=== PATIENT | male | born 1960 | race Caucasian/White ===

== ENCOUNTER 2018-10-01 16:35 | Outpatient (REF) | payer MEDICARE, SELFPAY ==
[2018-10-01 22:26] LABS: ALT 34 U/L (12-78); AST 24 U/L (15-37); Albumin 3.8 g/dL (3.4-5.0); Alkaline Phosphatase 71 U/L (46-116); Anion Gap 6.8 mmol/L (3-11); BUN 21 mg/dL (7-18); Bilirubin, Total 0.5 mg/dL (0.2-1.0); CO2 28.2 mmol/L (21.0-32.0); CREATININE 1.28 mg/dL (0.70-1.30); Calcium 9.4 mg/dL (8.5-10.1); Chloride 105 mmol/L (98-107); Estimated GFR 57.93 (mL/min/1.73m2); Glucose 87 mg/dL (70-100); Potassium 4.2 mmol/L (3.5-5.1); Sodium 140 mmol/L (136-145); Total Protein 7.2 g/dL (6.4-8.2)
== END 2018-10-01 16:55 ==
LOC: LBN 16:35
PROVIDERS: PCP Internal Medicine; Visit Provider Internal Medicine Rheumatology
DX: L40.50 Arthropathic psoriasis, unspecified (principal); Z79.899 Other long term (current) drug therapy
CPT/HCPCS: 80053

== ENCOUNTER 2020-04-29 13:31 | Outpatient (REF) | payer MEDICARE, SELFPAY ==
[2020-04-29 20:33] LABS: Abs Immature Grans 0.02 10^3/uL (0.0-0.06); Absolute Basophil Count 0.03 10^3/uL (0.0-0.2); Absolute Eosinophil Count 0.23 10^3/uL (0.0-0.7); Absolute Lymphocyte Count 1.66 10^3/uL (1.2-3.4); Absolute Monocyte Count 0.46 10^3/uL (0.1-0.8); Absolute Neutrophil Count 2.73 10^3/uL (1.2-6.7); Basophils % 0.6; Eosinophils % 4.5; HCT 44.8 % (40.0-50.0); HGB 14.6 g/dL (13.5-17.5); Immature Grans % 0.4; Lymphocytes % 32.4; MCH 31.8 pg (27.0-33.0); MCHC 32.6 % (32.0-36.0); MCV 97.6 fL (80-95); MPV 9.4 fL (8.0-11.0); Neutrophils % 53.1; Nucleated RBC 0 %; Platelet Count 287 10^3/uL (130-400); RBC 4.59 10^6/uL (4.36-5.78); RDW 12.7 % (11.8-14.1); RDW-SD 45.7 fL; WBC 5.13 10^3/uL (4.4-10.8)
[2020-04-29 21:04] LABS: ALT 52 U/L (16-63); AST 28 U/L (15-37); Alkaline Phosphatase 71 U/L (46-116); Anion Gap 6.8 mmol/L (3-11); BUN 20 mg/dL (7-18); Bilirubin, Total 1.1 mg/dL (0.2-1.0); CO2 29.2 mmol/L (21.0-32.0); CREATININE 1.13 mg/dL (0.70-1.30); Calcium 9.5 mg/dL (8.5-10.1); Chloride 104 mmol/L (98-107); Glucose 81 mg/dL (74-106); Potassium 4.4 mmol/L (3.5-5.1); Sodium 140 mmol/L (136-145); Total Protein 7.4 g/dL (6.4-8.2)
== END 2020-04-29 13:51 ==
LOC: NCHCN 13:31
PROVIDERS: PCP Internal Medicine; Referring Provider Nurse Practitioner Family; Visit Provider Nurse Practitioner Family
DX: L40.50 Arthropathic psoriasis, unspecified (principal); Z79.899 Other long term (current) drug therapy
CPT/HCPCS: 80053; 85025

== ENCOUNTER 2020-08-24 16:12 | Outpatient (REF) | payer MEDICARE, SELFPAY ==
[2020-08-24 22:50] LABS: ALT 42 U/L (16-63); AST 26 U/L (15-37); Albumin 4.1 g/dL (3.4-5.0); Alkaline Phosphatase 72 U/L (46-116); Anion Gap 6.5 mmol/L (3-11); BUN 24 mg/dL (7-18); Bilirubin, Total 0.6 mg/dL (0.2-1.0); CO2 28.5 mmol/L (21.0-32.0); CREATININE 1.34 mg/dL (0.70-1.30); Calcium 9.6 mg/dL (8.5-10.1); Chloride 104 mmol/L (98-107); Estimated GFR 54.56 (mL/min/1.73m2); Glucose 168 mg/dL (74-106); Lipase 57 U/L (73-393); Sodium 139 mmol/L (136-145); Total Protein 7.4 g/dL (6.4-8.2)
[2020-08-24 23:10] LABS: HCT 40.3 % (40.0-50.0); HGB 13.8 g/dL (13.5-17.5); MCH 32.8 pg (27.0-33.0); MCHC 34.2 % (32.0-36.0); MCV 95.7 fL (80-95); MPV 9.2 fL (8.0-11.0); Platelet Count 278 10^3/uL (130-400); RBC 4.21 10^6/uL (4.36-5.78); RDW 13.6 % (11.8-14.1); WBC 6.23 10^3/uL (4.4-10.8)
[2020-08-24 23:27] LABS: Hemoglobin A1C 5.7 % (<5.7)
== END 2020-08-24 16:32 ==
LOC: NCHCN 16:12
PROVIDERS: PCP Internal Medicine; Visit Provider Nurse Practitioner Family
DX: R73.03 Prediabetes (principal); R78.5 Finding of other psychotropic drug in blood; E66.9 Obesity, unspecified; E88.81 Metabolic syndrome and other insulin resistance
CPT/HCPCS: 80053; 83690; 85027; 83036

== ENCOUNTER 2020-11-02 19:19 | Outpatient (REF) | payer MEDICARE, SELFPAY ==
[2020-11-02 22:09] LABS: HCT 40.6 % (40.0-50.0); HGB 13.9 g/dL (13.5-17.5); MCH 32.9 pg (27.0-33.0); MCHC 34.2 % (32.0-36.0); MPV 8.8 fL (8.0-11.0); Platelet Count 279 10^3/uL (130-400); RBC 4.23 10^6/uL (4.36-5.78); RDW 13.3 % (11.8-14.1); RDW-SD 46.8 fL; WBC 6.32 10^3/uL (4.4-10.8)
[2020-11-02 22:18] LABS: Anion Gap 7.7 mmol/L (3-11); BUN 18 mg/dL (7-18); CO2 29.3 mmol/L (21.0-32.0); CREATININE 1.2 mg/dL (0.70-1.30); Calcium 10.2 mg/dL (8.5-10.1); Chloride 105 mmol/L (98-107); Glucose 96 mg/dL (74-106); Potassium 4.4 mmol/L (3.5-5.1); Sodium 142 mmol/L (136-145)
== END 2020-11-02 19:20 | disposition home or self-care (01) ==
LOC: NCHCN 19:19
PROVIDERS: PCP Internal Medicine; Visit Provider Nurse Practitioner Family
DX: E66.9 Obesity, unspecified (principal)
CPT/HCPCS: 80048; 85027

== ENCOUNTER 2020-12-22 14:12 | Outpatient (REF) | payer MEDICARE, SELFPAY ==
[2020-12-22 15:26] LABS: Abs Immature Grans 0.02 10^3/uL (0.0-0.06); Absolute Basophil Count 0.03 10^3/uL (0.0-0.2); Absolute Eosinophil Count 0.35 10^3/uL (0.0-0.7); Absolute Lymphocyte Count 1.36 10^3/uL (1.2-3.4); Absolute Monocyte Count 0.57 10^3/uL (0.1-0.8); Absolute Neutrophil Count 2.13 10^3/uL (1.2-6.7); Basophils % 0.7; Eosinophils % 7.8; HCT 38.2 % (40.0-50.0); HGB 12.6 g/dL (13.5-17.5); Immature Grans % 0.4; Lymphocytes % 30.5; MCH 32.9 pg (27.0-33.0); MCV 99.7 fL (80-95); MPV 9.2 fL (8.0-11.0); Monocytes % 12.8; Neutrophils % 47.8; Nucleated RBC 0 %; Platelet Count 297 10^3/uL (130-400); RBC 3.83 10^6/uL (4.36-5.78); RDW 13.3 % (11.8-14.1); RDW-SD 48.6 fL; WBC 4.46 10^3/uL (4.4-10.8)
[2020-12-22 16:11] LABS: ALT 44 U/L (16-63); AST 25 U/L (15-37); Alkaline Phosphatase 68 U/L (46-116); BUN 18 mg/dL (7-18); Bilirubin, Total 0.7 mg/dL (0.2-1.0); CREATININE 1.1 mg/dL (0.70-1.30); Calcium 9.2 mg/dL (8.5-10.1); Calculated LDL 135 mg/dL (<100); Chloride 107 mmol/L (98-107); Cholesterol 200 mg/dL (<200); Glucose 99 mg/dL (74-106); HDL Cholesterol 33 mg/dL (40-60); Potassium 4.7 mmol/L (3.5-5.1); Sodium 142 mmol/L (136-145); Total Protein 7.3 g/dL (6.4-8.2); Triglyceride 162 mg/dL (<150)
== END 2020-12-22 14:13 | disposition home or self-care (01) ==
LOC: LBN 14:12
PROVIDERS: PCP Internal Medicine; Visit Provider Nurse Practitioner Family
DX: L40.50 Arthropathic psoriasis, unspecified (principal); Z79.899 Other long term (current) drug therapy; E78.5 Hyperlipidemia, unspecified
CPT/HCPCS: 80053; 80061; 85025

== ENCOUNTER 2021-01-18 11:32 | Outpatient (REF) | payer MEDICARE, SELFPAY ==
[2021-01-19 14:02] LABS: Helicobacter pylori Ag, Feces Negative (Negative)
== END 2021-01-18 11:33 | disposition home or self-care (01) ==
LOC: NCHCN 11:32
PROVIDERS: Nurse Practitioner Family; PCP Internal Medicine; Visit Provider Nurse Practitioner Community Health
DX: K21.9 Gastro-esophageal reflux disease without esophagitis (principal)
CPT/HCPCS: 87338

== ENCOUNTER 2021-05-01 17:55 | Outpatient (REF) | payer MEDICARE, SELFPAY ==
[2021-05-01 21:18] LABS: Abs Immature Grans 0.04 10^3/uL (0.0-0.06); Absolute Basophil Count 0.04 10^3/uL (0.0-0.2); Absolute Eosinophil Count 0.36 10^3/uL (0.0-0.7); Absolute Lymphocyte Count 1.64 10^3/uL (1.2-3.4); Absolute Monocyte Count 0.62 10^3/uL (0.1-0.8); Absolute Neutrophil Count 4.21 10^3/uL (1.2-6.7); Basophils % 0.6; Eosinophils % 5.2; HCT 40.1 % (40.0-50.0); HGB 13.4 g/dL (13.5-17.5); Immature Grans % 0.6; Lymphocytes % 23.7; MCH 31.3 pg (27.0-33.0); MCHC 33.4 % (32.0-36.0); MCV 93.7 fL (80-95); MPV 9.2 fL (8.0-11.0); Neutrophils % 60.9; Nucleated RBC 0 %; Platelet Count 307 10^3/uL (130-400); RBC 4.28 10^6/uL (4.36-5.78); RDW 14.4 % (11.8-14.1); RDW-SD 49.2 fL; WBC 6.91 10^3/uL (4.4-10.8)
[2021-05-01 21:33] LABS: ALT 45 U/L (16-63); AST 32 U/L (15-37); Alkaline Phosphatase 69 U/L (46-116); BUN 18 mg/dL (7-18); Bilirubin, Total 0.8 mg/dL (0.2-1.0); CREATININE 1.3 mg/dL (0.70-1.30); Calcium 10.2 mg/dL (8.5-10.1); Chloride 105 mmol/L (98-107); Estimated GFR 56.31 (mL/min/1.73m2); Glucose 148 mg/dL (74-106); Potassium 4.4 mmol/L (3.5-5.1); Sodium 142 mmol/L (136-145); Total Protein 7.2 g/dL (6.4-8.2)
== END 2021-05-01 17:56 | disposition home or self-care (01) ==
LOC: LBN 17:55
PROVIDERS: PCP Internal Medicine; Visit Provider Nurse Practitioner Family
DX: L40.50 Arthropathic psoriasis, unspecified (principal); Z79.899 Other long term (current) drug therapy
CPT/HCPCS: 80053; 85025

== ENCOUNTER 2021-06-09 15:47 | Outpatient (REF) | payer MEDICARE, SELFPAY ==
[2021-06-09 21:13] LABS: Magnesium 2.1 mg/dL (1.8-2.4)
[2021-06-09 21:17] LABS: Anion Gap 8.7 mmol/L (3-11); BUN 19 mg/dL (7-18); CO2 25.3 mmol/L (21.0-32.0); Calcium 9.3 mg/dL (8.5-10.1); Chloride 108 mmol/L (98-107); Glucose 100 mg/dL (74-106); Potassium 4.6 mmol/L (3.5-5.1); Sodium 142 mmol/L (136-145)
== END 2021-06-09 15:48 | disposition home or self-care (01) ==
LOC: NCHCN 15:47
PROVIDERS: PCP Internal Medicine; Visit Provider Nurse Practitioner Family
DX: R25.2 Cramp and spasm (principal)
CPT/HCPCS: 80048; 83735

== ENCOUNTER 2021-09-11 16:40 | Outpatient (REF) | payer MEDICARE, SELFPAY ==
[2021-09-11 22:15] LABS: Abs Immature Grans 0.03 10^3/uL (0.0-0.06); Absolute Basophil Count 0.04 10^3/uL (0.0-0.2); Absolute Eosinophil Count 0.36 10^3/uL (0.0-0.7); Absolute Lymphocyte Count 1.56 10^3/uL (1.2-3.4); Absolute Monocyte Count 0.63 10^3/uL (0.1-0.8); Basophils % 0.6; Eosinophils % 5.3; HCT 41.1 % (40.0-50.0); HGB 13.4 g/dL (13.5-17.5); Immature Grans % 0.4; Lymphocytes % 22.9; MCH 31.9 pg (27.0-33.0); MCHC 32.6 % (32.0-36.0); MCV 97.9 fL (80-95); Monocytes % 9.2; Neutrophils % 61.6; Nucleated RBC 0 %; Platelet Count 328 10^3/uL (130-400); RDW 13.3 % (11.8-14.1); RDW-SD 47.4 fL; WBC 6.82 10^3/uL (4.4-10.8)
[2021-09-11 22:24] LABS: ALT 25 U/L (16-63); AST 20 U/L (15-37); Albumin 3.9 g/dL (3.4-5.0); Alkaline Phosphatase 80 U/L (46-116); Anion Gap 7.1 mmol/L (3-11); BUN 29 mg/dL (7-18); Bilirubin, Total 0.6 mg/dL (0.2-1.0); CO2 28.9 mmol/L (21.0-32.0); CREATININE 1.3 mg/dL (0.70-1.30); Calcium 9.3 mg/dL (8.5-10.1); Chloride 106 mmol/L (98-107); Estimated GFR 56.31 (mL/min/1.73m2); Glucose 88 mg/dL (74-106); Potassium 4.5 mmol/L (3.5-5.1); Sodium 142 mmol/L (136-145); Total Protein 7.4 g/dL (6.4-8.2)
[2021-09-11 22:33] LABS: Hemoglobin A1C 5.8 % (<5.7)
[2021-09-11 22:49] LABS: Calculated LDL 139 mg/dL (<100); Cholesterol 204 mg/dL (<200); HDL Cholesterol 33 mg/dL (40-60); Triglyceride 161 mg/dL (<150)
== END 2021-09-11 16:41 | disposition home or self-care (01) ==
LOC: NCHCN 16:40
PROVIDERS: Nurse Practitioner Family; PCP Internal Medicine; Visit Provider Nurse Practitioner Family
DX: R73.03 Prediabetes (principal); R63.4 Abnormal weight loss; R03.0 Elevated blood-pressure reading, without diagnosis of hypertension; E78.5 Hyperlipidemia, unspecified; N39.0 Urinary tract infection, site not specified; L40.50 Arthropathic psoriasis, unspecified
CPT/HCPCS: 80053; 80061; 87077; 83036; 85025; 87086; 87186

== ENCOUNTER 2022-01-05 22:47 | Outpatient (REF) | payer MEDICARE, SELFPAY ==
[2022-01-05 21:59] LABS: Abs Immature Grans 0.01 10^3/uL (0.0-0.06); Absolute Basophil Count 0.05 10^3/uL (0.0-0.2); Absolute Eosinophil Count 0.56 10^3/uL (0.0-0.7); Absolute Lymphocyte Count 1.73 10^3/uL (1.2-3.4); Absolute Monocyte Count 0.54 10^3/uL (0.1-0.8); Absolute Neutrophil Count 2.97 10^3/uL (1.2-6.7); Basophils % 0.9; Eosinophils % 9.6; HCT 40.5 % (40.0-50.0); HGB 13.3 g/dL (13.5-17.5); Immature Grans % 0.2; Lymphocytes % 29.5; MCH 32.3 pg (27.0-33.0); MCHC 32.8 % (32.0-36.0); MCV 98.3 fL (80-95); MPV 9.2 fL (8.0-11.0); Monocytes % 9.2; Neutrophils % 50.6; Platelet Count 313 10^3/uL (130-400); RBC 4.12 10^6/uL (4.36-5.78); RDW 13.5 % (11.8-14.1); RDW-SD 49.1 fL; WBC 5.86 10^3/uL (4.4-10.8)
[2022-01-05 22:55] LABS: ALT 50 U/L (16-63); AST 37 U/L (15-37); Albumin 4.2 g/dL (3.4-5.0); Alkaline Phosphatase 81 U/L (46-116); Anion Gap 9.3 mmol/L (3-11); BUN 18 mg/dL (7-18); Bilirubin, Total 0.9 mg/dL (0.2-1.0); CO2 28.7 mmol/L (21.0-32.0); CREATININE 1.3 mg/dL (0.70-1.30); Calcium 9.7 mg/dL (8.5-10.1); Calculated LDL 144 mg/dL (<100); Chloride 105 mmol/L (98-107); Cholesterol 229 mg/dL (<200); Estimated GFR 56.12 (mL/min/1.73m2); Glucose 93 mg/dL (74-106); HDL Cholesterol 35 mg/dL (40-60); Potassium 4.4 mmol/L (3.5-5.1); Sodium 143 mmol/L (136-145); Total Protein 7.7 g/dL (6.4-8.2); Triglyceride 253 mg/dL (<150)
[2022-01-09 11:20] LABS: c-ANCA Negative (Negative); p-ANCA Negative (Negative)
== END 2022-01-05 22:48 | disposition home or self-care (01) ==
LOC: NCHCN 22:47
PROVIDERS: PCP Internal Medicine; Visit Provider Internal Medicine
DX: R03.0 Elevated blood-pressure reading, without diagnosis of hypertension (principal); E78.5 Hyperlipidemia, unspecified; L40.50 Arthropathic psoriasis, unspecified; Z79.899 Other long term (current) drug therapy; E66.9 Obesity, unspecified
CPT/HCPCS: 80053; 80061; 85025; 86255

== ENCOUNTER 2022-03-02 15:24 | Outpatient (REF) | payer MEDICARE, SELFPAY ==
[2022-03-02 14:40] LABS: Hemoglobin A1C 5.9 % (<5.7)
[2022-03-02 15:05] LABS: COMMENT (LAB VIEW ONLY) 177.44 mg/dL; Prot/Crea Ur Ratio 0.04
[2022-03-02 15:06] LABS: ALT 36 U/L (16-63); AST 16 U/L (15-37); Albumin 3.8 g/dL (3.4-5.0); Alkaline Phosphatase 66 U/L (46-116); BUN 21 mg/dL (7-18); Bilirubin, Total 0.7 mg/dL (0.2-1.0); CREATININE 1.2 mg/dL (0.70-1.30); Chloride 104 mmol/L (98-107); Glucose 96 mg/dL (74-106); Potassium 4.5 mmol/L (3.5-5.1); Sodium 139 mmol/L (136-145)
== END 2022-03-02 15:25 | disposition home or self-care (01) ==
LOC: NCHCN 15:24
PROVIDERS: PCP Internal Medicine; Visit Provider Nurse Practitioner Family
DX: R73.03 Prediabetes; R60.0 Localized edema
CPT/HCPCS: 80053; 82565; 83036; 84156

== ENCOUNTER 2022-07-02 08:29 | Outpatient (REF) | payer MEDICARE, SELFPAY ==
[2022-07-02 16:40] LABS: Abs Immature Grans 0.03 10^3/uL (0.0-0.06); Absolute Basophil Count 0.03 10^3/uL (0.0-0.2); Absolute Eosinophil Count 0.43 10^3/uL (0.0-0.7); Absolute Lymphocyte Count 1.56 10^3/uL (1.2-3.4); Absolute Monocyte Count 0.63 10^3/uL (0.1-0.8); Absolute Neutrophil Count 3.85 10^3/uL (1.2-6.7); Basophils % 0.5; Eosinophils % 6.6; HCT 41.3 % (40.0-50.0); Immature Grans % 0.5; Lymphocytes % 23.9; MCH 32.3 pg (27.0-33.0); MCHC 33.9 % (32.0-36.0); MCV 95 fL (80-95); MPV 9.3 fL (8.0-11.0); Monocytes % 9.6; Neutrophils % 58.9; Platelet Count 279 10^3/uL (130-400); RBC 4.34 10^6/uL (4.36-5.78); RDW 13.4 % (11.8-14.1); RDW-SD 47.1 fL; WBC 6.53 10^3/uL (4.4-10.8)
[2022-07-02 19:08] LABS: ALT 42 U/L (16-63); AST 24 U/L (15-37); Albumin 3.8 g/dL (3.4-5.0); Alkaline Phosphatase 73 U/L (46-116); Anion Gap 9.3 mmol/L (3-11); BUN 17 mg/dL (7-18); Bilirubin, Total 0.7 mg/dL (0.2-1.0); CO2 26.7 mmol/L (21.0-32.0); CREATININE 1.2 mg/dL (0.70-1.30); Calcium 9.3 mg/dL (8.5-10.1); Calculated LDL 85 mg/dL (<100); Chloride 106 mmol/L (98-107); Cholesterol 140 mg/dL (<200); Glucose 100 mg/dL (74-106); HDL Cholesterol 33 mg/dL (40-60); Potassium 4.4 mmol/L (3.5-5.1); Sodium 142 mmol/L (136-145); Total Protein 7.4 g/dL (6.4-8.2); Triglyceride 114 mg/dL (<150)
== END 2022-07-02 08:30 | disposition home or self-care (01) ==
LOC: NCHCN 08:29
PROVIDERS: PCP Internal Medicine; Visit Provider Nurse Practitioner Family
DX: E78.5 Hyperlipidemia, unspecified (principal); L40.50 Arthropathic psoriasis, unspecified; Z79.899 Other long term (current) drug therapy; M54.50 Low back pain, unspecified
CPT/HCPCS: 80053; 80061; 85025

== ENCOUNTER 2022-11-14 11:45 | Outpatient (REF) | payer MEDICARE, SELFPAY ==
[2022-11-14 15:41] LABS: Abs Immature Grans 0.03 10^3/uL (0.0-0.06); Absolute Basophil Count 0.03 10^3/uL (0.0-0.2); Absolute Eosinophil Count 0.39 10^3/uL (0.0-0.7); Absolute Lymphocyte Count 1.09 10^3/uL (1.2-3.4); Absolute Monocyte Count 0.99 10^3/uL (0.1-0.8); Absolute Neutrophil Count 5.98 10^3/uL (1.2-6.7); Basophils % 0.4; Eosinophils % 4.6; HCT 41.9 % (40.0-50.0); HGB 14.3 g/dL (13.5-17.5); Immature Grans % 0.4; Lymphocytes % 12.8; MCH 32.3 pg (27.0-33.0); MCHC 34.1 % (32.0-36.0); MCV 95 fL (80-95); MPV 9.2 fL (8.0-11.0); Monocytes % 11.6; Neutrophils % 70.2; Platelet Count 268 10^3/uL (130-400); RBC 4.43 10^6/uL (4.36-5.78); RDW 13.2 % (11.8-14.1); RDW-SD 45.3 fL; WBC 8.51 10^3/uL (4.4-10.8)
[2022-11-14 16:06] LABS: ALT 33 U/L (16-63); AST 20 U/L (15-37); Alkaline Phosphatase 91 U/L (46-116); Anion Gap 6.8 mmol/L (3-11); BUN 18 mg/dL (7-18); CO2 27.2 mmol/L (21.0-32.0); CREATININE 1.2 mg/dL (0.70-1.30); Calcium 9.8 mg/dL (8.5-10.1); Chloride 108 mmol/L (98-107); Glucose 105 mg/dL (74-106); Potassium 4.2 mmol/L (3.5-5.1); Sodium 142 mmol/L (136-145); Total Protein 7.5 g/dL (6.4-8.2)
== END 2022-11-14 11:46 | disposition home or self-care (01) ==
LOC: LBN 11:45
PROVIDERS: PCP Internal Medicine; Visit Provider Nurse Practitioner Family
DX: L40.50 Arthropathic psoriasis, unspecified (principal); Z79.899 Other long term (current) drug therapy; M54.59 Other low back pain; G89.29 Other chronic pain
CPT/HCPCS: 80053; 85025

== ENCOUNTER 2023-07-09 10:20 | Emergency (ER) | payer MEDICARE, SELFPAY ==
[2023-07-09] VITALS (56 sets, daily range): BP systolic 140–166; BP diastolic 78–96; PULSE 53–79; RESP 16–20; TEMP 36.6–36.8; O2SAT 97–99
--- NOTE | 2023-07-09 10:30 | DI.RAD_ITS ---
Exam(s) XR PELVIS AP EXAM: XR PELVIS AP CLINICAL HISTORY: fall from latdder, left hip pain. TECHNIQUE: 2D digital imaging was performed. COMPARISON: No exams were available for comparison FINDINGS: Two views. No evidence of pelvic nor hip fracture. Calcific density lateral to the greater trochanter of the le ft hip has more the appearance of calcific trochanteric bursitis than an actual fracture fragment but correlation with site of tenderness is recommended. No hip joint space narrowing. Also noted is evidence of prior surgery in the lumbar spine IMPRESSION: Left finding as above which is doubtful for acute fracture. Previous lumbar spine surgery. DATA REPOSITORY: RADIATION DOSE DELIVERED:
--- NOTE | 2023-07-09 10:30 | DI.RAD_ITS ---
Exam(s) XR FEMUR LT EXAM: XR FEMUR LT CLINICAL HISTORY: fall from ladder, left leg pain. TECHNIQUE: 2D digital imaging was performed. COMPARISON: CR PORTABLE AP CHEST from 01/08/2009 CT ABD PELVIS WITH CONTRAST from 03/02/2010 FINDINGS: 3 views There is a 1.4 x 1.0 cm calcific density adjacent to the lateral aspect of the greater trochanter of the left hip. This does not have typical appearance of a fracture fragment and may be related to jane cific bursitis. There is also no prominent soft tissue swelling over this area. There is no hip keara nt space narrowing. No fractures lower down in the left femur. IMPRESSION: Doubtful for greater trochanter fracture. Probably chronic calcification at this level related to ch ronic trochanteric bursitis Correlation with site of maximum tenderness recommended. DATA REPOSITORY: RADIATION DOSE DELIVERED:
--- NOTE | 2023-07-09 10:30 | DI.CT_ITS ---
Exam(s) CT LUMBAR SPINE WO EXAM: CT LUMBAR SPINE WO CLINICAL HISTORY: fall from ladder, back pain; hx of fusion. TECHNIQUE: Imaging Protocol: Axial computed tomography images with coronal and sagittal reformatted images were created and reviewed COMPARISON: CT ABD PELVIS WITH CONTRAST from 03/02/2010 FINDINGS: Bones: There is evidence of previous lower lumbar laminectomies/non hardware fusion surgery. No new osseous findings at these levels.. However, on the present study there is an acute appearing fracture in the right side of the L1 verteb ral body at superior endplate level without prominent height loss and without extension into the pedi cles. There is also fracture of the right-side of the superior endplate of T12, also not extending i nto the pedicle. No other superior endplate fractures. There are no transverse process fractures. The bone graft sit es in the lower lumbar spine appear intact. There are no prominent paraspinal hematomas. SI joints appear intact. No sacral fractures identified. IMPRESSION: 1. Right-side superior endplate mild compression fractures T12 and L1 vertebral bodies 2. No evidence of acute compromise of the spinal canal. 3. Evidence of prior fusion surgery and laminectomies in the lower levels of the lumbar spine which a ppear intact/unchanged from prior study listed above. Called by myself to ER physician RADIATION DOSE DELIVERED: Total DLP DATA REPOSITORY: All CT scans at this facility are submitted to the National Radiology Data Registry (NRDR) Dose Index Registry (DIR) with the [employer] (ACR). RADIATION OPTIMIZATION: All CT scans at this facility use at least one of these dose optimization te chniques: automated exposure control; mA and/or kV adjustment per patient size (includes targeted exa ms where dose is matched to clinical indication); or iterative reconstruction.
--- NOTE | 2023-07-09 10:45 | ED.GENADUL_ITS ---
Discharge Plan Disposition Patient Disposition: Home Condition: Improving Discharge Details Clinical Impression: Compression fracture of L1 vertebra, T12 compression fracture Primary Care Provider: Reese Cabello ED Provider: Chidi Durán Home Meds and New Rx's Prescriptions: New cyclobenzaprine 5 mg tablet 5 mg PO QHS PRN (Reason: muscle spasm) Qty: 10 0RF lidocaine [Lidoderm] 5 % adhesive patch,medicated 1 patch topical DAILY Qty: 15 0RF Rx Instructions: leave on most painful area for up to 12 hrs No Action prednisone 10 MG tablet 10 - 60 mg PO DIRECTED Hold Instructions: Prescription Finished levofloxacin [Levaquin] 500 MG tablet 500 mg PO DAILY Hold Instructions: Pt Stopped/Never Started methotrexate sodium 2.5 MG tablet 7.5 mg PO DIRECTED gabapentin 800 MG tablet 800 mg PO HS ranitidine HCl 150 MG tablet 300 mg PO HS Hold Instructions: Prescription Finished allopurinol 300 MG tablet 300 mg PO HS Hold Instructions: Pt Stopped/Never Started folic acid 1 MG tablet 1 mg PO HS atorvastatin 40 mg tablet 40 mg PO DAILY Patient Comments: TAKE 1 TABLET BY MOUTH EVERY DAY Discharge Instructions Instructions: Vertebral Compression Fracture (ED) Additional Instructions: Please return to the emergency department for any worsening symptoms specifically but not limited to any abnormal neurologic findings such as weakness numbness bowel or bladder dysfunction falls or other abnormal symptoms. Follow-up close with your primary care physician and consider reaching out to your spinal surgeon at [facility] [[email or web address]] for follow-up. Ibuprofen at home for anti- inflammatory purposes. We will send a prescription to your pharmacy for Lidoderm topical pain patches as well as cyclobenzaprine muscle relaxer Medical Decision Making 62-year-old male history of lumbar spinal fusion presents with back pain and hip pain after falling 7 to 8 feet off of a ladder, slip and fall onto his side and his hip, no head injury no thoracoabdominal trauma, superficial abrasion paraspinal region lumbar, no midline spinal tenderness crepitus step-off or deformity however patient does have paraspinal lumbar discomfort, pelvis stable full range of motion of bilateral lower extremities, lungs clear bilaterally, abdomen soft nontender nondistended. Patient is hemodynamically stable. Likely simple contusion however given discomfort mechanism age and history of surgery will obtain CT lumbar spine to assess for injury, will also obtain screening AP pelvis x-ray and left femur x-ray. Trial of Toradol dexamethasone and Lidoderm patch for analgesia anti-inflammatory purposes. Given normal neurologic examination hemodynamic stability likely home with close follow-up and return precautions 15: 08 evidence of T12 and L1 compression fractures, no retropulsion, patient remains neurologically intact, ambulatory able to bear weight. Home care instructions and return precautions given. Patient has a spinal surgeon at [facility] [[email or web address]] who did his prior laminectomy and fusion that he will likely seek follow-up with. HPI General Date/Time Provider Initiated Documentation: 07/09/23 10:23 . HPI Narrative: 62-year-old male presents after mechanical slip and fall 7 to 8 feet off of a ladder falling onto his left side, hitting hip and back, no head injury, no loss of conscious no chest pain no abdominal pain no shortness of breath. Patient was ambulatory at scene; denies bowel or bladder issues. Patient does have remote history of a lumbar spinal fusion. Related Data Home Medications Medication Instructions Recorded Confirmed allopurinol 300 mg tablet 300 mg PO HS 01/12/16 07/09/23 folic acid 1 mg tablet 1 mg PO HS 01/12/16 07/09/23 gabapentin 800 mg tablet 800 mg PO HS 01/12/16 07/09/23 levofloxacin 500 mg tablet 500 mg PO DAILY 01/12/16 07/09/23 (Levaquin) methotrexate sodium 2.5 mg tablet 7.5 mg PO DIRECTED 01/12/16 07/09/23 prednisone 10 mg tablet 10 - 60 mg PO DIRECTED 01/12/16 07/09/23 ranitidine HCl 150 mg tablet 300 mg PO HS 01/12/16 07/09/23 atorvastatin 40 mg tablet 40 mg PO DAILY 07/09/23 07/09/23 cyclobenzaprine 5 mg tablet 5 mg PO QHS PRN muscle spasm #10 07/09/23 tabs lidocaine 5 % topical patch 1 patch topical DAILY #15 ea 07/09/23 (Lidoderm) Previous Rx's Medication Instructions Recorded cyclobenzaprine 5 mg tablet 5 mg PO QHS PRN muscle spasm #10 07/09/23 tabs lidocaine 5 % topical patch 1 patch topical DAILY #15 ea 07/09/23 (Lidoderm) Allergies Allergy/AdvReac Type Severity Reaction Status Date / Time acetaminophen [From Percocet] AdvReac Mild Nausea Unverified 07/09/23 10:36 oxycodone HCl [From Percocet] AdvReac Mild Nausea Unverified 07/09/23 10:36 General Stated Complaint: Nk/Back Pain CHARANJIT: 3 Review of Systems Narrative: Review of Systems Constitutional: negative Eyes: negative ENT: negative Cardiovascular: negative Respiratory: negative Gastrointestinal: negative : negative Musculoskeletal: Back pain and hip pain Skin: negative Neurologic: negative Psych: negative PFSH All Active Problems (Updated 07/09/23 @ 13:11 by Chidi Durán MD) T12 compression fracture (Acute) Compression fracture of L1 vertebra (Acute) Social History Smoking/Tobacco Use Status: Never Smoking risk assessment performed?: Yes Drug use: Never Exam Narrative Exam Narrative: Physical Examination General: alert, awake, cooperative, resting comfortably, no acute distress HEENT: normocephalic, atraumatic; PERRL, EOM intact, conjunctiva normal; no nasal discharge; moist mucous membranes, oral and pharyngeal mucosa normal, tolerating secretions Neck: supple, trachea midline; full ROM Chest: normal to inspection Respiratory: normal respiratory effort, speaking in full sentences, clear to auscultation, no wheezing, rales or rhonchi Cardiac: regular rate, regular rhythm, S1S2 intact, no murmurs rubs or gallops GI: abdomen soft, non-tender, non-distended; no palpable mass or hepatosplenomegaly Back: No midline spinal tenderness crepitus step-off or deformity patient does have left paraspinal lumbar discomfort, superficial abrasions to lumbar soft tissue Skin: no lesions, rashes or trauma appreciated Neuro: AAOx3, normal speech, moving all extremities; 5 out of 5 strength upper and lower extremities, cranial nerves II through XII intact, no truncal ataxia Extremities: Straight leg raise with full strength and mobility bilaterally, no deformities to legs knees ankles or feet, pelvis is stable Psych: Appropriate mood and affect Course Vital Signs Vital signs: Vital Signs Temperature 36.8 C 07/09/23 10:23 Pulse 56 L 07/09/23 10:23 Respiratory Rate 16 07/09/23 10:23 Blood Pressure 145/78 H 07/09/23 10:23 Pulse Oximetry 98 07/09/23 10:23 Temperature 36.8 C 07/09/23 10:23 Temperature Source Oral 07/09/23 10:23 Pulse 56 L 07/09/23 10:23 Respiratory Rate 16 07/09/23 10:23 Respiratory Effort Normal, Non-Labored 07/09/23 10:36 Blood Pressure 145/78 H 07/09/23 10:23 Blood Pressure Position Supine 07/09/23 10:23 Pulse Oximetry 98 07/09/23 10:23 Oxygen Delivery Method Room Air 07/09/23 10:23 Oxygen Flow Rate 0 07/09/23 10:23 Pain Level 9 07/09/23 10:23 Comment Pain in back and left hip 07/09/23 10:23
[2023-07-09] MEDS: Lidocaine 5% Patch 1 PATCH TP (10:52)
[2023-07-09] MEDS: Ketorolac 15 MG/ML VIAL IM (10:53)
[2023-07-09] MEDS: Dexamethasone 10 MG/ML VIAL PO (10:54)
--- NOTE | 2023-07-09 11:45 | DI.CT_ITS ---
Exam(s) CT THORACIC SPINE WO EXAM: CT THORACIC SPINE WO CLINICAL HISTORY: fall from ladder. TECHNIQUE: Imaging Protocol: Axial computed tomography images with coronal and sagittal reformatted images were created and reviewed. CONTRAST MATERIAL: Intravenous: None COMPARISON: CT CT LUMBAR SPINE WO from 07/09/2023 FINDINGS: Bones: There are fracture line seen in the right-side of the T12 and L1 vertebral bodies, not extendi ng into the pedicles and not associated retropulsed cortex into the spinal canal. There is calcifica tion in the bulging posterior annulus at this level incidentally noted. There are no fractures in th e thoracic spine above this level. There is multilevel disc space narrowing. There is multilevel fa cet arthropathy but no facet malalignment evident. No evidence of paraspinal hematoma. IMPRESSION: No fractures above the T12 level. Called to ER physician RADIATION DOSE DELIVERED: Total DLP DATA REPOSITORY: All CT scans at this facility are submitted to the National Radiology Data Registry (NRDR) Dose Index Registry (DIR) with the [employer] (ACR). RADIATION OPTIMIZATION: All CT scans at this facility use at least one of these dose optimization te chniques: automated exposure control; mA and/or kV adjustment per patient size (includes targeted exa ms where dose is matched to clinical indication); or iterative reconstruction.
== END 2023-07-09 13:29 | disposition home or self-care (01) ==
PROVIDERS: Emergency Provider Emergency Medicine; PCP Internal Medicine
DX: S22.080A Wedge compression fracture of T11-T12 vertebra, initial encounter for closed fracture (principal); S32.010A Wedge compression fracture of first lumbar vertebra, initial encounter for closed fracture; W11.XXXA Fall on and from ladder, initial encounter; Y93.89 Activity, other specified; Y92.89 Other specified places as the place of occurrence of the external cause; Y99.9 Unspecified external cause status; Z94.1 Heart transplant status
CPT/HCPCS: 73552; 96374; 99284; 72128; 72131; 72170; J1100; J1885

== ENCOUNTER 2023-08-26 09:55 | Outpatient (REF) | payer MEDICARE, SELFPAY ==
[2023-08-26 14:34] LABS: Abs Immature Grans 0.03 10^3/uL (0.0-0.06); Absolute Basophil Count 0.04 10^3/uL (0.0-0.2); Absolute Eosinophil Count 0.31 10^3/uL (0.0-0.7); Absolute Lymphocyte Count 1.39 10^3/uL (1.2-3.4); Absolute Monocyte Count 0.67 10^3/uL (0.1-0.8); Absolute Neutrophil Count 3.57 10^3/uL (1.2-6.7); Basophils % 0.7; Eosinophils % 5.2; HCT 43.8 % (40.0-50.0); HGB 14.8 g/dL (13.5-17.5); Immature Grans % 0.5; Lymphocytes % 23.1; MCH 31.7 pg (27.0-33.0); MCHC 33.8 % (32.0-36.0); MCV 94 fL (80-95); MPV 8.8 fL (8.0-11.0); Monocytes % 11.1; Neutrophils % 59.4; Platelet Count 320 10^3/uL (130-400); RBC 4.67 10^6/uL (4.36-5.78); RDW 13.3 % (11.8-14.1); WBC 6.01 10^3/uL (4.4-10.8)
[2023-08-26 14:44] LABS: ALT 31 U/L (16-63); AST 21 U/L (15-37); Albumin 3.8 g/dL (3.4-5.0); Alkaline Phosphatase 87 U/L (46-116); Anion Gap 6.3 mmol/L (3-11); BUN 22 mg/dL (7-18); Bilirubin, Total 1.1 mg/dL (0.2-1.0); CO2 28.7 mmol/L (21.0-32.0); CREATININE 1.3 mg/dL (0.70-1.30); Chloride 104 mmol/L (98-107); Estimated GFR 62.11 (mL/min/1.73m2); Glucose 112 mg/dL (74-106); Potassium 4.2 mmol/L (3.5-5.1); Sodium 139 mmol/L (136-145); Total Protein 7.7 g/dL (6.4-8.2)
== END 2023-08-26 09:56 | disposition home or self-care (01) ==
LOC: LBN 09:55
PROVIDERS: PCP Internal Medicine; Visit Provider Nurse Practitioner Family
DX: L40.59 Other psoriatic arthropathy (principal); M54.59 Other low back pain; G89.29 Other chronic pain; Z79.899 Other long term (current) drug therapy
CPT/HCPCS: 80053; 85025

== ENCOUNTER 2023-11-25 18:21 | Outpatient (REF) | payer MEDICARE, SELFPAY ==
[2023-11-25 14:55] LABS: Abs Immature Grans 0.03 10^3/uL (0.0-0.06); Absolute Basophil Count 0.03 10^3/uL (0.0-0.2); Absolute Eosinophil Count 0.38 10^3/uL (0.0-0.7); Absolute Lymphocyte Count 1.47 10^3/uL (1.2-3.4); Absolute Monocyte Count 0.53 10^3/uL (0.1-0.8); Absolute Neutrophil Count 2.59 10^3/uL (1.2-6.7); Basophils % 0.6; Eosinophils % 7.6; HCT 40.8 % (40.0-50.0); HGB 14.2 g/dL (13.5-17.5); Immature Grans % 0.6; Lymphocytes % 29.2; MCH 32.3 pg (27.0-33.0); MCHC 34.8 % (32.0-36.0); MCV 93 fL (80-95); Monocytes % 10.5; Neutrophils % 51.5; RBC 4.39 10^6/uL (4.36-5.78); RDW 13.4 % (11.8-14.1); RDW-SD 44.9 fL; WBC 5.03 10^3/uL (4.4-10.8)
[2023-11-25 15:00] LABS: ALT 77 U/L (16-63); AST 33 U/L (15-37); Albumin 3.6 g/dL (3.4-5.0); Alkaline Phosphatase 88 U/L (46-116); Anion Gap 5.3 mmol/L (3-11); BUN 19 mg/dL (7-18); Bilirubin, Total 0.6 mg/dL (0.2-1.0); CO2 30.7 mmol/L (21.0-32.0); CREATININE 1.2 mg/dL (0.70-1.30); Calcium 9.2 mg/dL (8.5-10.1); Chloride 106 mmol/L (98-107); Estimated GFR 68.38 (mL/min/1.73m2); Glucose 99 mg/dL (74-106); Potassium 4.2 mmol/L (3.5-5.1); Sodium 142 mmol/L (136-145); Total Protein 7.2 g/dL (6.4-8.2)
[2023-11-25 15:18] LABS: Diff Comment Diff Reviewed; RBC Morphology Normal
[2023-11-25 15:38] LABS: Hemoglobin A1C 5.6 % (<5.7)
== END 2023-11-25 18:22 | disposition home or self-care (01) ==
LOC: NCHCN 18:21
PROVIDERS: Nurse Practitioner Family; PCP Internal Medicine; Visit Provider Internal Medicine
DX: R73.03 Prediabetes (principal); L40.50 Arthropathic psoriasis, unspecified; M54.59 Other low back pain; G89.29 Other chronic pain; Z79.899 Other long term (current) drug therapy
CPT/HCPCS: 80053; 83036; 85025

== ENCOUNTER 2023-12-31 16:08 | Outpatient (REF) | payer MEDICARE, SELFPAY ==
[2023-12-31 21:16] LABS: Abs Immature Grans 0.01 10^3/uL (0.0-0.06); Absolute Basophil Count 0.05 10^3/uL (0.0-0.2); Absolute Eosinophil Count 0.36 10^3/uL (0.0-0.7); Absolute Lymphocyte Count 1.58 10^3/uL (1.2-3.4); Absolute Monocyte Count 0.42 10^3/uL (0.1-0.8); Absolute Neutrophil Count 3.71 10^3/uL (1.2-6.7); Basophils % 0.8; Eosinophils % 5.9; HCT 41.4 % (40.0-50.0); HGB 14.2 g/dL (13.5-17.5); Immature Grans % 0.2; Lymphocytes % 25.8; MCH 31.8 pg (27.0-33.0); MCHC 34.3 % (32.0-36.0); MCV 93 fL (80-95); MPV 9.4 fL (8.0-11.0); Monocytes % 6.9; Neutrophils % 60.4; Platelet Count 280 10^3/uL (130-400); RBC 4.46 10^6/uL (4.36-5.78); RDW 13.1 % (11.8-14.1); RDW-SD 44.7 fL; WBC 6.13 10^3/uL (4.4-10.8)
[2023-12-31 21:54] LABS: ALT 38 U/L (16-63); AST 29 U/L (15-37); Alkaline Phosphatase 88 U/L (46-116); Anion Gap 11.4 mmol/L (3-11); BUN 18 mg/dL (7-18); Bilirubin, Total 1.1 mg/dL (0.2-1.0); CO2 24.6 mmol/L (21.0-32.0); CREATININE 1.2 mg/dL (0.70-1.30); Calcium 9.2 mg/dL (8.5-10.1); Chloride 107 mmol/L (98-107); Estimated GFR 67.95 (mL/min/1.73m2); Glucose 102 mg/dL (74-106); Potassium 4.3 mmol/L (3.5-5.1); Sodium 143 mmol/L (136-145); Total Protein 7.3 g/dL (6.4-8.2)
[2024-01-01 21:59] LABS: PSA, Screening 0.6 ng/mL (<=4.5)
== END 2023-12-31 16:09 | disposition home or self-care (01) ==
LOC: LBN 16:08
PROVIDERS: Internal Medicine; PCP Internal Medicine; Visit Provider Nurse Practitioner Family
DX: L40.50 Arthropathic psoriasis, unspecified (principal); R94.5 Abnormal results of liver function studies; Z12.5 Encounter for screening for malignant neoplasm of prostate; Z79.899 Other long term (current) drug therapy
CPT/HCPCS: 80053; 84153; 85025

== ENCOUNTER 2024-07-17 13:33 | Outpatient (REF) | payer MEDICARE, SELFPAY ==
[2024-07-17 21:45] LABS: Abs Immature Grans 0.03 10^3/uL (0.0-0.06); Absolute Basophil Count 0.02 10^3/uL (0.0-0.2); Absolute Eosinophil Count 0.36 10^3/uL (0.0-0.7); Absolute Lymphocyte Count 0.91 10^3/uL (1.2-3.4); Absolute Monocyte Count 0.49 10^3/uL (0.1-0.8); Absolute Neutrophil Count 3.64 10^3/uL (1.2-6.7); Basophils % 0.4 %; Eosinophils % 6.6 %; HCT 40.8 % (40.0-50.0); HGB 13.7 g/dL (13.5-17.5); Immature Grans % 0.6 %; Lymphocytes % 16.7 %; MCH 32.5 pg (27.0-33.0); MCHC 33.6 % (32.0-36.0); MCV 97 fL (80-95); Neutrophils % 66.7 %; Platelet Count 255 10^3/uL (130-400); RBC 4.22 10^6/uL (4.36-5.78); RDW 13.6 % (11.8-14.1); RDW-SD 47.8 fL; WBC 5.45 10^3/uL (4.4-10.8)
[2024-07-17 22:06] LABS: ALT 30 U/L (16-63); AST 26 U/L (15-37); Albumin 3.7 g/dL (3.4-5.0); Alkaline Phosphatase 79 U/L (46-116); Anion Gap 6.6 mmol/L (3-11); BUN 22 mg/dL (7-18); Bilirubin, Total 0.97 mg/dL (0.2-1.0); CO2 28.4 mmol/L (21.0-32.0); CREATININE 1.2 mg/dL (0.70-1.30); Calcium 9.4 mg/dL (8.5-10.1); Chloride 109 mmol/L (98-107); Estimated GFR 67.95 (mL/min/1.73m2); Glucose 145 mg/dL (74-106); Potassium 4.3 mmol/L (3.5-5.1); Sodium 144 mmol/L (136-145); Total Protein 7.3 g/dL (6.4-8.2)
== END 2024-07-17 13:34 | disposition home or self-care (01) ==
LOC: NCHCN 13:33
PROVIDERS: Nurse Practitioner Family; PCP Internal Medicine; Visit Provider Internal Medicine
DX: L40.50 Arthropathic psoriasis, unspecified (principal); L40.9 Psoriasis, unspecified
CPT/HCPCS: 80053; 85025

== ENCOUNTER 2024-10-28 15:35 | Outpatient (REF) | payer MEDICARE, SELFPAY ==
[2024-10-28 14:57] LABS: Abs Immature Grans 0.02 10^3/uL (0.0-0.06); Absolute Basophil Count 0.05 10^3/uL (0.0-0.2); Absolute Eosinophil Count 0.52 10^3/uL (0.0-0.7); Absolute Lymphocyte Count 1.48 10^3/uL (1.2-3.4); Absolute Monocyte Count 0.58 10^3/uL (0.1-0.8); Absolute Neutrophil Count 5.97 10^3/uL (1.2-6.7); Basophils % 0.6 %; HGB 13.6 g/dL (13.5-17.5); Immature Grans % 0.2 %; Lymphocytes % 17.2 %; MCH 32.7 pg (27.0-33.0); MCV 96 fL (80-95); MPV 8.8 fL (8.0-11.0); Monocytes % 6.7 %; Neutrophils % 69.3 %; Platelet Count 271 10^3/uL (130-400); RBC 4.16 10^6/uL (4.36-5.78); RDW 13.3 % (11.8-14.1); RDW-SD 46.5 fL; WBC 8.62 10^3/uL (4.4-10.8)
[2024-10-28 15:17] LABS: ALT 41 U/L (16-63); AST 26 U/L (15-37); Albumin 3.8 g/dL (3.4-5.0); Alkaline Phosphatase 83 U/L (46-116); BUN 18 mg/dL (7-18); Bilirubin, Total 0.98 mg/dL (0.2-1.0); CREATININE 1.3 mg/dL (0.70-1.30); Calcium 9.7 mg/dL (8.5-10.1); Chloride 106 mmol/L (98-107); Estimated GFR 61.73 (mL/min/1.73m2); Glucose 95 mg/dL (74-106); Potassium 4.4 mmol/L (3.5-5.1); Sodium 142 mmol/L (136-145); Total Protein 7.3 g/dL (6.4-8.2)
== END 2024-10-28 15:36 | disposition home or self-care (01) ==
LOC: LBN 15:35
PROVIDERS: PCP Internal Medicine; Visit Provider Nurse Practitioner Family
DX: L40.50 Arthropathic psoriasis, unspecified (principal); L40.9 Psoriasis, unspecified
CPT/HCPCS: 80053; 85025

== ENCOUNTER 2025-03-26 19:07 | Emergency (ER) | payer MEDICARE, SELFPAY ==
[2025-03-26 19:10] VITALS: BP 168/106; PULSE 63; RESP 16; O2SAT 98
[2025-03-26 19:14] VITALS: BP 168/106; PULSE 63; RESP 16; O2SAT 98
[2025-03-26 19:45] LABS: Abs Immature Grans 0.03 10^3/uL (0.0-0.06); HCT 41.3 % (40.0-50.0); HGB 14.0 g/dL (13.5-17.5); Immature Grans % 0.4 %; MCH 31.6 pg (27.0-33.0); MCHC 33.9 % (32.0-36.0); MCV 93 fL (80-95); MPV 8.7 fL (8.0-11.0); Platelet Count 261 10^3/uL (130-400); RBC 4.43 10^6/uL (4.36-5.78); RDW 12.9 % (11.8-14.1); RDW-SD 44.2 fL; WBC 7.75 10^3/uL (4.4-10.8)
[2025-03-26 19:46] LABS: Glucose Negative (Negative)
[2025-03-26 19:52] LABS: C & S Indicated? No; WBC Negative HPF (0-5)
[2025-03-26 20:07] LABS: ALT 33 U/L (16-63); AST 23 U/L (15-37); Albumin 3.9 g/dL (3.4-5.0); Alkaline Phosphatase 78 U/L (46-116); Anion Gap 8.2 mmol/L (3-11); BUN 19 mg/dL (7-18); Bilirubin, Total 1.5 mg/dL (0.2-1.0); CO2 27.8 mmol/L (21.0-32.0); Calcium 9.5 mg/dL (8.5-10.1); Chloride 102 mmol/L (98-107); Estimated GFR 98.83 (mL/min/1.73m2); Glucose 123 mg/dL (74-106); Lipase 16 U/L (<78); Potassium 4.0 mmol/L (3.5-5.1); Sodium 138 mmol/L (136-145); Total Protein 7.6 g/dL (6.4-8.2)
--- NOTE | 2025-03-26 20:13 | ED.GENADUL_ITS ---
Discharge Plan Disposition Patient Disposition: Home Condition: Good Discharge Details Clinical Impression: LLQ abdominal pain Primary Care Provider: Reese Cabello ED Provider: Vini Ferrell [place] Meds and New Rx's Prescriptions: Continued methotrexate sodium 2.5 MG tablet 7.5 mg PO DIRECTED gabapentin 800 MG tablet 800 mg PO HS folic acid 1 MG tablet 1 mg PO HS atorvastatin 40 mg tablet 40 mg PO DAILY Patient Comments: TAKE 1 TABLET BY MOUTH EVERY DAY pantoprazole 40 mg tablet,delayed release (DR/EC) 40 mg PO DAILY Patient Comments: TAKE ONE TABLET BY MOUTH EVERY DAY ibuprofen [IBU] 400 mg tablet 400 mg PO Q12H Discharge Instructions Instructions: Abdominal Pain, Adult ED Additional Instructions: You were seen for left lower quadrant abdominal pain. Your laboratory studies, urinalysis, CT scan are reassuring. I would not take any more laxative or stool softener for the time being given what you took earlier. I do recommend clear liquid/bland diet for the next day or 2. Follow-up with primary care next week if not improving. Return to ED for new or worsening pain, fever, persistent vomiting, other concerns. Referrals: [facility] [Provider Group] [facility] General Mode of arrival: ambulatory . Date/Time Provider Initiated Documentation: 03/26/25 19:15 . Limitations to Documentation: no limitations . Information obtained by: patient and RN notes reviewed . HPI Narrative: Patient presents to ED with worsening left lower quadrant abdominal pain over the course of 24 hours. He does have problems with constipation and has not been taking his stool softener. He took 2 laxative tablets and 4 stool softener tablets this afternoon. He denies any fever. He has been nauseated. He vomited once on the car ride in. Did have some pain radiate up into his chest for a little bit, has since resolved. He is not having any difficulty urinating. He has had no previous abdominal surgeries. He is passing gas and did pass a small amount of stool earlier. Related Data Home Medications ?Medication ?Instructions ?Recorded ?Confirmed folic acid 1 mg tablet 1 mg PO HS 01/12/16 03/26/25 gabapentin 800 mg tablet 800 mg PO HS 01/12/16 methotrexate sodium 2.5 mg tablet 7.5 mg PO DIRECTE D 01/12/16 03/26/25 atorvastatin 40 mg tablet 40 mg PO DAILY 07/09/2301/15 ibuprofen 400 mg tablet (IBU) 400 mg PO Q12H 03/26/25 03/26/25 pantoprazole 40 mg tablet,delayed 40 mg PO DAILY 03/2603/26/25 release Allergies Allergy/AdvReac Type Severity Reaction Status Date / Time acetaminophen (From Percocet) AdvReac Mild Nausea Verified 03/26/25 21:15 oxycodone HCl (From Percocet) AdvReac Mild Nausea Verified 03/26/25 21:15 General Stated Complaint: Abd Prob CHARANJIT: 3 Exam Narrative Exam Narrative: Const: WDWN male in NAD. VS per triage. HEENT: NC/AT. Normal facial exam. Neck: Supple. Trachea midline. Lungs: Normal respiratory effort. Lungs are clear. Cor: RRR without murmur. Good radial pulses. GI: Soft/ND. Tender in the LLQ without guarding or rebound. Neuro: A+O x 3. Normal speech, mentation, gait. Cranial nerves II - XII grossly intact. No gross motor or sensory deficit. Ext: No C/C/E. Course Vital Signs Vital signs: Vital Signs Pulse 63 03/26/25 19:10 Respiratory Rate 16 03/26/25 19:10 Blood Pressure 168/106 H 03/26/25 19:10 Pulse Oximetry 98 03/26/25 19:10 Pulse 63 03/26/25 19:14 Respiratory Rate 16 03/26/25 19:14 Blood Pressure 168/106 H 03/26/25 19:14 Blood Pressure Position Sitting 03/26/25 19:14 Pulse Oximetry 98 03/26/25 19:14 Oxygen Delivery Method Room Air 03/26/25 19:14 Oxygen Flow Rate 0 03/26/25 19:14 Pain Level 8 03/26/25 19:14 Lab/Test Results Lab/Test Results: Laboratory Tests Range/Units 03/26/25 19:34 WBC (4.4-10.8) 10^3/uL 7.75 RBC (4.36-5.78) 10^6/uL 4.43 Hgb (13.5-17.5) g/dL 14.0 Hct (40.0-50.0) % 41.3 MCV (80-95) fL 93 MCH (27.0-33.0) pg 31.6 MCHC (32.0-36.0) % 33.9 RDW (11.8-14.1) % 12.9 Plt Count (130-400) 10^3/uL 261 MPV (8.0-11.0) fL 8.7 Immature Gran % % 0.4 Neutrophils % % 74.8 Lymphocytes % % 13.2 Monocytes % % 6.8 Eosinophils % % 4.4 Basophils % % 0.4 Nucleated RBC % (0.0-0.3) % 0.0 Absolute Neutrophils (1.2-6.7) 10^3/uL 5.80 Absolute Lymphocytes (1.2-3.4) 10^3/uL 1.02 L Absolute Monocytes (0.1-0.8) 10^3/uL 0.53 Absolute Eosinophils (0.0-0.7) 10^3/uL 0.34 Absolute Basophils (0.0-0.2) 10^3/uL 0.03 Sodium (136-145) mmol/L 138 Potassium (3.5-5.1) mmol/L 4.0 Chloride (98-107) mmol/L 102 Carbon Dioxide (21.0-32.0) mmol/L 27.8 Anion Gap (3-11) mmol/L 8.2 BUN (7-18) mg/dL 19 H Creatinine (0.70-1.30) mg/dL 0.8 Est GFR (CKD-EPI 2020) (mL/min/1.73m2) 98.83 Glucose (74-106) mg/dL 123 H Calcium (8.5-10.1) mg/dL 9.5 Total Bilirubin (0.2-1.0) mg/dL 1.5 H AST (15-37) U/L 23 ALT (16-63) U/L 33 Alkaline Phosphatase (46-116) U/L 78 Total Protein (6.4-8.2) g/dL 7.6 Albumin (3.4-5.0) g/dL 3.9 Lipase (<78) U/L 16 Urine Color (Yellow) Yellow Urine Clarity (Clear) Clear Urine pH (5-8) 6.0 Ur Specific [place] (1.005-1.025) >= 1.030 H Urine Protein (Neg-Trace) mg/dL Negative Urine Ketones (Negative) mg/dL Negative Urine Blood (Negative) Trace-intact H Urine Nitrite (Negative) Negative Urine Bilirubin (Negative) Negative Urine Urobilinogen (Up to 0.2) mg/dL 0.2 Ur Leukocyte Esterase (Negative) Negative Urine RBC (0-2) HPF 5-10 H Urine WBC (0-5) HPF Negative Ur Epithelial Cells (Negative) HPF Negative Urine Crystals (Negative) HPF Negative Urine Bacteria (Negative) HPF Rare Urine Casts (Negative) LPF Negative Urine Mucus (Negative) Negative Ur Culture Indicated? No Urine Glucose (Negative) mg/dL Negative Medical Decision Making Patient presenting to ED with left lower quadrant abdominal pain and constipation. He is tender in the left lower quadrant. He has not had fever. He has had 1 episode of vomiting. He did take laxative and stool softener this afternoon. I primary concern would be diverticulitis given his history and exam. Laboratory studies have been sent by nursing. His white count is normal. Chemistries unremarkable. LFTs with a slightly elevated bilirubin at 1.5, otherwise normal. Will plan to obtain CT scan. Doubt anything cardiac but be cause of radiation to the chest I will obtain an EKG and 1 troponin. Urinalysis to also be run. Patient's EKG is sinus bradycardia with left axis but normal intervals and no acute ST changes. Troponin is normal at 9. Urinalysis with some trace blood and 5-10 red cells otherwise negative. CT scan with no acute abdominal process and no evidence of diverticulitis. At this point I think he is safe for discharge home. I do recommend not taking more laxative or stool softener for now given the amount he took this afternoon. Encourage hydration and bland diet over the weekend. Follow-up with primary care next week if not improving. Return precautions provided. Imaging Data Radiologic Study: Imaging: CT Scan Radiologist's impression: IMPRESSION: 1. No acute findings. 2. Benign left renal cysts. No further imaging required. 3. Thoracolumbar spondylosis. Thank you for allowing us to participate in the care of your patient. Dictated and Authenticated by: Washington Sylvester MD Lab Data Lab results reviewed: Yes I reviewed the patient's lab results. Lab results narrative: see [facility] ECG Data Attestation: I personally reviewed and interpreted this ECG (s) as follows: Prior ECG tracings: not available for review Interpretation: see EKG/[facility] All Active Problems LLQ abdominal pain (Acute) Medical History Hyperlipidemia Psoriatic arthritis Social History Smoking/Tobacco Use Status: Never Smoking risk assessment performed?: Yes Drug use: Never
--- NOTE | 2025-03-26 20:15 | RT.EKG_ITS ---
APPROVED REPORT Exam: Resting ECG Reason for Exam: Patient Location: E HR:54 bpm ECG Measurements Heart Rate 54 AXIS MT 199 P 46 QRSd 104 QRS -38 QT 415 T 0 QTc 394 Conclusion Sinus bradycardia...rate< 60 Left axis deviation...QRS axis (-30,-90) Normal Interval No actue ST changes
[2025-03-26 20:40] LABS: Lab Add On Test DONE
[2025-03-26] MEDS: Ondansetron 4 MG/2 ML VIAL IVP (20:51)
[2025-03-26] MEDS: ACETAMINOPHEN 1,000 MG/100 ML BAG 400 MG IVPB (20:51)
[2025-03-26] MEDS: Normal Saline 1,000 ML 1000 ML IV (21:11)
[2025-03-26 21:13] LABS: Troponin I 9 ng/L (<or=76)
--- NOTE | 2025-03-26 21:34 | DI.CT_ITS ---
Exam(s) CT ABDOMEN PELVIS W EXAM: CT ABDOMEN PELVIS W CLINICAL HISTORY: LLQ pain/tenderness. TECHNIQUE: Imaging Protocol: Axial computed tomography images with coronal and sagittal reformatted images were created and reviewed CONTRAST MATERIAL: Intravenous: Omnipaque-350 100cc Oral: None COMPARISON: CT ABD PELVIS WITH CONTRAST from 03/02/2010 FINDINGS: VISUALIZED LUNG BASES: There are mild increased markings in the right lower lobe partially included in the field of view. There are no pleural effusions.. ABDOMEN: There is no ascites. LIVER: There are no focal hepatic lesions evident. No dilated intrahepatic ducts. GALLBLADDER/BILIARY: No obvious gallbladder pathology. CBD is not dilated. PANCREAS: No evidence of pancreatic mass nor dilatation of the pancreatic duct. A few tiny pancreatic parenchymal calcifications are noted. There is no evidence of pancreatic mass. There are no peripancreatic fluid collections. SPLEEN: Spleen is not enlarged. No obvious intrasplenic lesions. Splenic and portal veins are patent. ADRENALS: There are no significant adrenal masses. KIDNEYS:Right kidney unremarkable. There are 2 cysts in the left kidney, the larger measuring 2 cm. These benign cysts do not require further imaging workup. There are no solid renal masses. Tiny density in the left kidney may consistent with a small nonobstructive calculus measuring 1-2 mm. ABDOMINAL AORTA: Abdominal aorta is not enlarged. LYMPH NODES:There is no retroperitoneal nor paraaortic adenopathy. ABDOMINAL WALL: No evidence of significant anterior abdominal wall nor inguinal hernia. GI: There is no evidence of bowel obstruction, free air, nor abscess. There are 2 adjacent peripherally calcified fat containing benign-appearing lesions in the right-side of the abdomen adjacent to the hepatic flexure of the colon, of questionable significance. There is no evidence of acute diverticulitis nor other mass at this level. PELVIS: GI: The appendix is not identified as a separate structure. There is no evidence of acute appendicitis.There is no significant sigmoid diverticular disease. LYMPH NODES: There is a calcified lymph node in the pelvis just above the urinary bladder which measures 11 x 6 mm. REPRODUCTIVE: Prostate size slightly prominent.. Seminal vesicles unremarkable. URINARY BLADDER: No calculi nor obvious masses evident OSSEOUS: Multilevel degenerative disc disease. Mild degenerative anterolisthesis L4 upon L5 the and there is evidence of prior bone graft surgery in the lower lumbar spine. There is no metallic hardware. IMPRESSION: 1. Findings as above but no obvious acute findings in the abdomen pelvis. 2. Are benign-appearing peripherally calcified densities in the mesentery adjacent to the a [place] flexure of the colon, possibly representing sequela of fat necrosis. There is also single calcified 11 x 6 mm lymph node in the pelvis just above the urinary bladder. The bladder itself appears unremarkable. 3. There is mild enlargement of the prostate gland. Preliminary virtual Radiology report was reviewed RADIATION DOSE DELIVERED: 902.28mGy.cm Total DLP DATA REPOSITORY: All CT scans at this facility are submitted to the National Radiology Data Registry (NRDR) Dose Index Registry (DIR) with the [employer] (ACR). RADIATION OPTIMIZATION: All CT scans at this facility use at least one of these dose optimization techniques: automated exposure control; mA and/or kV adjustment per patient size (includes targeted exams where dose is matched to clinical indication); or iterative reconstruction.
[2025-03-26] MEDS: Omnipaque 350 MG/ML 100 ML BTL IJ (21:35)
[2025-03-26] MEDS: Normal Saline - Diluent 50 ML VIAL IJ (21:36)
--- NOTE | 2025-03-26 22:25 | DI.VRAD_ITS ---
PROCEDURE INFORMATION: Exam: CT Abdomen And Pelvis With Contrast Exam date and time: 03/26/2025 9:20 PM Age: 64 years old Clinical indication: Abdominal pain; Localized; Left lower quadrant (llq); Llq pain/tenderness TECHNIQUE: Imaging protocol: Computed tomography of the abdomen and pelvis with contrast. Radiation optimization: All CT scans at this facility use at least one of these dose optimization techniques: automated exposure control; mA and/or kV adjustment per patient size (includes targeted exams where dose is matched to clinical indication); or iterative reconstruction. Contrast material: [id number]; Contrast volume: 100 ml; Contrast route: INTRAVENOUS (IV); COMPARISON: CR XR PELVIS AP 07/09/2023 11:47 AM FINDINGS: Lungs: Mild scarring in the right lung base. Coronary arteries: Mild coronary artery calcification. Liver: Normal. No mass. Gallbladder and biliary ducts: Normal. No calcified stones. No ductal dilation. Pancreas: Moderate fatty atrophy of the pancreas. No parenchymal mass or pancreatic duct dilatation. Spleen: Normal. No splenomegaly. Adrenal glands: Normal. No mass. Kidneys and ureters: Benign left renal cysts. No urolithiasis or hydroureteronephrosis. Stomach and bowel: Unremarkable. No obstruction. No mucosal thickening. Appendix: No evidence of appendicitis. Intraperitoneal space: Unremarkable. No free air. No significant fluid collection. Vasculature: Mild calcified atherosclerotic disease of the abdominal aorta and iliac arteries. No aneurysm. Lymph nodes: Unremarkable. No enlarged lymph nodes. Urinary bladder: Unremarkable as visualized. Reproductive: Mild prostatic enlargement. Bilateral hydroceles. Bones/joints: T12 superior endplate compression fracture is unchanged. Bulky anterior osteophytes of the lower thoracic spine are also unchanged. Marked multilevel facet arthropathy. Moderate L4-L5 and mild L5-S1 degenerative disc changes. No acute fracture or focal suspicious osseous lesion. Left-sided L5 sacralization with pseudoarthrosis. Soft tissues: Unremarkable. IMPRESSION: 1. No acute findings. 2. Benign left renal cysts. No further imaging required. 3. Thoracolumbar spondylosis. Dictated and Authenticated by: Washington Sylvester MD. Orderin Ghassan Martini MD
== END 2025-03-26 22:49 | disposition home or self-care (01) ==
PROVIDERS: Student in an Organized Health Care Education/Training Program; Emergency Provider Emergency Medicine; PCP Internal Medicine
DX: R10.32 Left lower quadrant pain (principal); R00.1 Bradycardia, unspecified; E78.5 Hyperlipidemia, unspecified
CPT/HCPCS: 80053; 83690; 93005; 96361; 96365; 96375; 99285; 74177; 81003; 81015; 84484; 85025; 93010; J0131; J2405; J3490

== ENCOUNTER 2025-07-05 15:50 | Outpatient (REF) | payer MEDICARE, SELFPAY ==
[2025-07-05 21:27] LABS: Abs Immature Grans 0.02 10^3/uL (0.0-0.06); HCT 40.5 % (40.0-50.0); HGB 13.6 g/dL (13.5-17.5); Immature Grans % 0.3 %; MCH 31.4 pg (27.0-33.0); MCHC 33.6 % (32.0-36.0); MCV 94 fL (80-95); MPV 8.7 fL (8.0-11.0); Platelet Count 262 10^3/uL (130-400); RBC 4.33 10^6/uL (4.36-5.78); RDW 14.0 % (11.8-14.1); RDW-SD 48.1 fL; WBC 6.29 10^3/uL (4.4-10.8)
[2025-07-05 21:51] LABS: ALT 31 U/L (16-63); AST 24 U/L (15-37); Albumin 3.7 g/dL (3.4-5.0); Alkaline Phosphatase 70 U/L (46-116); Anion Gap 8.5 mmol/L (3-11); BUN 18 mg/dL (7-18); Bilirubin, Total 0.9 mg/dL (0.2-1.0); CO2 28.5 mmol/L (21.0-32.0); Calcium 9.1 mg/dL (8.5-10.1); Chloride 105 mmol/L (98-107); Estimated GFR 74.96 (mL/min/1.73m2); Glucose 101 mg/dL (74-106); Potassium 4.3 mmol/L (3.5-5.1); Sodium 142 mmol/L (136-145); Total Protein 7.4 g/dL (6.4-8.2)
== END 2025-07-05 15:51 | disposition home or self-care (01) ==
LOC: NCHCN 15:50
PROVIDERS: PCP Internal Medicine; Visit Provider Nurse Practitioner Family
DX: L40.50 Arthropathic psoriasis, unspecified (principal)
CPT/HCPCS: 80053; 85025